=== PATIENT | female | born 1980 | race Hispanic/Latino ===

== ENCOUNTER 2018-09-15 17:30 | Emergency (ER) | payer BC ==
[2018-09-15 17:50] VITALS: BP 113/76; PULSE 82; RESP 16; TEMP 98.4; O2SAT 100
--- NOTE | 2018-09-15 20:03 | ED PDOC ---
HPI: Psych/Substance Abuse Time Seen by Provider: 09/15/18 17:54 Chief Complaint (Nursing): Psychiatric Evaluation Chief Complaint (Provider): Crisis Eval History Per: Patient History/Exam Limitations: no limitations (Pt presents to the ED with symptoms of depression that include inabiltiy to sleep, restlessness, lack of ability to work, lack of desire to engage, loss of appetite. She has been taking celexa for several months but fails to notice improvement. Pt consults with private Psych Dr Magaña; pt denies any medical or physical concern) Past Medical History Reviewed: Historical Data, Nursing Documentation, Vital Signs Vital Signs: Last Vital Signs Temp 98.4 F 09/15/18 17:47 Pulse 82 09/15/18 17:47 Resp 16 09/15/18 17:47 BP 113/76 09/15/18 17:47 Pulse Ox 100 09/15/18 17:47 - Medical History PMH: Depression - Family History Family History: States: Unknown Family Hx - Allergies Allergies/Adverse Reactions: Allergies Allergy/AdvReac Type Severity Reaction Status Date / Time No Known Allergies Allergy Verified 09/15/18 17:47 Review of Systems ROS Statement: Except As Marked, All Systems Reviewed And Found Negative Psych: Positive for: Depression Physical Exam - Reviewed Nursing Documentation Reviewed: Yes Vital Signs Reviewed: Yes - Physical Exam Appears: Positive for: Uncomfortable Head Exam: Positive for: ATRAUMATIC, NORMAL INSPECTION Skin: Positive for: Normal Color, Warm, Dry. Negative for: Diaphoresis, Pallor, Rash Eye Exam: Positive for: Normal appearance, PERRL. Negative for: Nystagmus, Allison orbital swelling, Periorbital tenderness Neck: Positive for: Normal, Painless ROM, Supple Cardiovascular/Chest: Positive for: Regular Rate, Rhythm Respiratory: Positive for: Normal Breath Sounds Pulses-Carotid (L): 2+ Pulses-Carotid (R): 2+ Pulses-Radial (L): 2+ Pulses-Radial (R): 2+ - ECG O2 Sat by Pulse Oximetry: 100 Medical Decision Making Medical Decision Making: I: Crisis Evaluation P: Crisis Evaluation Pt is screened by the crisis evaluators and deemed to not be appropriate for admission. Pt dx with depression, Dr Sanchez; the patient, on reevaluation, is stable for discharge Disposition - Clinical Impression Clinical Impression: Depression - Patient ED Disposition Is Patient to be Admitted: No Doctor Will See Patient In The: Office Counseled Patient/Family Regarding: Diagnosis, Need For Followup - Disposition Referrals: Eduardo Magaña MD [Medical Doctor] - Disposition: Routine/Home Disposition Time: 20:05 Condition: STABLE Instructions: Depression, Depression, Adult (DC), Medicines for Depression
== END 2018-09-15 20:30 | disposition home or self-care (01) ==
LOC: H.ER 17:30
DX: F32.9 Major depressive disorder, single episode, unspecified (principal)